=== PATIENT | female | born 1960 | race Caucasian/White ===

== ENCOUNTER 2018-02-07 14:44 | Observation (INO) | payer OTHER ==
[~2018-02-07] VITALS: Ht 165.1 cm; Wt 108.4 kg
[2018-02-07] MEDS ORDERED: ASPIRIN 81 MG CHEW TAB PO ONE (15:00)
[2018-02-07 15:46] LABS: BASOPHILS % 0.6 % (0.0-1.0); EOSINOPHILS # (AUTO) 0.1 (0.0-0.4); EOSINOPHILS % 1.5 % (0.0-6.0); HEMATOCRIT 45.8 % (34.2-44.1); HEMOGLOBIN 15.2 g/dL (12.0-16.0); LYMPHOCYTES % 29.8 % (18.0-39.1); MEAN CORPUSCULAR HEMOGLOBIN 31.9 pg (28-32); MEAN CORPUSCULAR HGB CONC 33.2 g/dL (31-35); MEAN CORPUSCULAR VOLUME 96.2 fL (81-99); MONOCYTES # (AUTO) 0.6 (0.2-0.8); MONOCYTES % 8.4 % (4.4-11.3); NEUTROPHILS # (AUTO) 3.9 (2.1-6.9); NEUTROPHILS % 59.5 % (38.7-80.0); PLATELET COUNT 260 x10e3/uL (140-360); RED BLOOD COUNT 4.76 x10e6/uL (3.6-5.1); RED CELL DISTRIBUTION WIDTH 13.3 % (11.7-14.4)
[2018-02-07 15:56] LABS: INR 1.13; PROTHROMBIN TIME 13.6 seconds (11.9-14.5)
[2018-02-07 15:57] LABS: PARTIAL THROMBOPLASTIN TIME 31.6 seconds (23.8-35.5)
[2018-02-07 16:06] LABS: ALANINE AMINOTRANSFERASE 54 IU/L (0-55); ALBUMIN 3.6 g/dL (3.5-5.0); ALBUMIN/GLOBULIN RATIO 0.9 (0.8-2.0); ALKALINE PHOSPHATASE 78 IU/L (40-150); ANION GAP 14.4 mmol/L (8-16); BLOOD UREA NITROGEN 13 mg/dL (7-26); BUN/CREATININE RATIO 16 (6-25); CALCIUM 9.5 mg/dL (8.4-10.2); CARBON DIOXIDE 23 mmol/L (22-29); CHLORIDE 106 mmol/L (98-107); CREATINE KINASE 141 IU/L (29-168); EST GLOMERULAR FILTRATION RATE > 60 ML/MIN (60-); GLUCOSE 89 mg/dL (74-118); POTASSIUM 4.4 mmol/L (3.5-5.1); SODIUM 139 mmol/L (136-145)
[2018-02-07 16:26] LABS: THYROID STIMULATING HORMONE 1.551 uIU/mL (0.350-4.940)
--- NOTE | 2018-02-07 16:29 | Diagnostic Imaging Report ---
PROCEDURE: A single AP view of the chest. COMPARISON: 01/04/2011 INDICATIONS: CHEST AND BACK PAIN FOR A FEW WEEKS FINDINGS: Lines/tubes: None. Lungs: The lungs are well inflated and clear. There is no evidence of pneumonia or pulmonary edema. Pleura: There is no pleural effusion or pneumothorax. Heart and mediastinum: Normal heart size. Tortuosity of the thoracic aorta appears stable. Bones: No acute bony abnormality. Cervical fusion hardware is visualized. IMPRESSION: 1. No acute cardiopulmonary disease. Dictated by: Hiram Winters M.D. on 02/07/2018 at 16:36 Electronically approved by: Hiram Winters M.D. on 02/07/2018 at 16:36
[2018-02-07] MEDS ORDERED: CLONIDINE HCL 0.1 MG TAB PO ONE (17:00)
[2018-02-07 17:09] LABS: BILIRUBIN,URINE NEGATIVE (NEGATIVE); CLARITY,URINE CLEAR (CLEAR); COLOR,URINE YELLOW (YELLOW); KETONES,URINE NEGATIVE (NEGATIVE); LEUKOCYTE ESTERASE ,URINE NEGATIVE (NEGATIVE); NITRITE,URINE NEGATIVE (NEGATIVE); PROTEIN,URINE DIPSTICK NEGATIVE (NEGATIVE); URINE UROBILINOGEN 0.2 mg/dL (0.2 - 1)
[2018-02-07 17:12] LABS: EPITHELIAL CELLS,URINE MODERATE /LPF
[2018-02-07] MEDS ORDERED: NITROGLYCERIN 0.4 MG SUBL SL PRN (17:45)
[2018-02-07 18:49] VITALS: BP 198/81
[2018-02-07 19:30] VITALS: BP 188/92
[2018-02-07 20:00] VITALS: BP 188/92
[2018-02-07] MEDS ORDERED: HYDRALAZINE HCL 20 MG/ML VIAL IV PRN (21:30)
[2018-02-07] MEDS: FAMOTIDINE 20 MG/2 ML VIAL IV SCH (21:36)
[2018-02-07] MEDS ORDERED: LOSARTAN POTASSIUM 100 MG TAB PO ONE (21:45)
[2018-02-07] MEDS ORDERED: METOPROLOL TARTRATE 50 MG TAB PO ONE (21:45)
[2018-02-08] VITALS (7 sets, daily range): BP systolic 128–162; BP diastolic 70–81
[2018-02-08 00:48] LABS: CREATINE KINASE 138 IU/L (29-168)
[2018-02-08] MEDS ORDERED: LOSARTAN POTASS25 MG (03:49)
[2018-02-08] MEDS ORDERED: METFORMIN HCL500 MG PO (03:49)
[2018-02-08] MEDS ORDERED: LASIX20 MG PO (03:50)
[2018-02-08] MEDS ORDERED: METOPROLOL TART25 MG PO (03:50)
[2018-02-08] MEDS ORDERED: PEPCID20 MG (03:51)
[2018-02-08 06:26] LABS: CHOL/HDL RATIO 6.2 (3.0-3.6); CHOLESTEROL 249 MD/DL (0-199); CREATINE KINASE 114 IU/L (29-168); HDL CHOLESTEROL 40 MG/DL (40-60); LDL CHOLESTEROL 177 MG/DL (60-130); TRIGLYCERIDES 161 MG/DL (0-149)
[2018-02-08] MEDS: FAMOTIDINE 20 MG/2 ML VIAL IV SCH (06:36)
[2018-02-08] MEDS ORDERED: ATORVASTATIN CA10 MG PO (06:40)
[2018-02-08] MEDS ORDERED: NORCO 10-325 T1 EACH (06:42)
[2018-02-08] MEDS ORDERED: METHOCARBAMOL750 MG PO (06:43)
[2018-02-08] MEDS ORDERED: DEXTROSE 50% SYRINGE 50 ML IV PRN (08:00)
--- NOTE | 2018-02-08 08:47 | History and Physical ---
CHIEF COMPLAINT: Chest pain on and off for the last few weeks. HISTORY OF PRESENT ILLNESS: A 57-year-old female with a past medical history of multiple medical problems was admitted at [facility] last evening with the above complaints. The patient was seen in the office yesterday with the above complaints. As per the patient, since the last few weeks she is having chest pain on exertion radiating to her back, retrosternal, precordial. A couple of days back, the patient also felt chest pain radiating to the left arm with left arm tightness. Hence, the patient came to my office yesterday. In the emergency room, the patient was seen by the emergency room doctor and admitted for cardiac workup. At present, the patient is lying comfortably in bed. No apparent distress. No chest pain. No shortness of breath. No nausea, vomiting or diarrhea. No abdominal pain, loss of consciousness. No headaches. No hematemesis or melena. No hematuria or dysuria. No fever. No cough. No witnessed seizures. PAST MEDICAL HISTORY 1. Diabetes mellitus, type 2. 2. Hypertension. 3. Dyslipidemia. 4. Degenerative joint disease. MEDICATIONS: As per the list in the chart. ALLERGIES: PENICILLIN, DARVON. SURGICAL HISTORY: Right hip replacement, right knee replacement, left knee replacement, gallbladder surgery, and abdominal wall ventral hernia surgery. SOCIAL HISTORY: No smoking. No alcohol. No illicit drug use. Lives with family. REVIEW OF SYSTEMS: As per HPI. FAMILY HISTORY: Noncontributory. PHYSICAL EXAMINATION GENERAL: The patient is alert and oriented times 3. No apparent distress. Lying in bed. VITALS: Temperature is 97, pulse 64 per minute, respirations 16, blood pressure 134/80, and saturating 97%. HEENT: No cyanosis. No icterus. No pallor. Normocephalic and atraumatic. PERRLA. NECK: Soft and supple. No JVD. No lymphadenopathy. CHEST: Air entry bilaterally. No murmurs or rubs. ABDOMEN: Soft and nontender. Bowel sounds are positive. JALOUSIES INSTALLER: Alert and oriented times 3. No focal deficit. EXTREMITIES: No cyanosis. No clubbing. No edema. No calf pain. LABS: On admission to the ER, white count 6.5, hemoglobin 15.2, hematocrit 45.8, and platelets 260,000. Sodium 134, potassium 4.5, chloride 106, bicarb 23, BUN 13, creatinine 0.8, glucose 99. LFTs noted. Cardiac enzymes times 3 negative. TSH 1.55. BNP 13.5. Urine negative. Chest x-ray with no acute abnormality. EKG is normal sinus rhythm. ASSESSMENT 1. Chest pain. 2. History of diabetes mellitus. 3. Hypertension. 4. Dyslipidemia. 5. Rule out ischemic heart disease. PLAN: Admit the patient to med/tele. Serial EKGs, cardiac enzymes. Cardiology consultation with Dr. Max. He has scheduled the patient for cardiac stress test today. Further care and treatment while the patient is in the hospital. Discussed with the patient in detail. Continue home medications. Further care and treatment while the patient is in the hospital. Job#: [id number] JERRELL
[2018-02-08] MEDS: LOSARTAN POTASSIUM 100 MG TAB PO SCH (09:00)
[2018-02-08] MEDS: METOPROLOL TARTRATE 50 MG TAB PO SCH ×2 (09:00→17:00)
--- NOTE | 2018-02-08 09:18 | Consultation ---
DATE OF CONSULTATION: February 07, 2018 CARDIOLOGY CONSULTATION REFERRING PHYSICIAN: Dr. Borrego REASON FOR CONSULTATION: Chest pain. HPI: This is a pleasant, 57-year-old female that presented with chest pain. According to her, for 3 weeks she has been having uncontrolled high blood pressure with systolics in the 200s and diastolics in the 150s. She is taking all her medications, and her blood pressure is still high. She also stated when the blood pressure goes up, she has a dull, aching pain at the center of her chest that radiates to her back and to the left arm on a scale of 8 out of 10. She stated she gets shortness of breath with activity, and she decided to come into the emergency room for evaluation. She denied any palpitations, any dizziness, any diaphoresis or headache. Troponin times 3 negative. EKG showed normal sinus rhythm with no ST abnormalities. PAST MEDICAL HISTORY: Uncontrolled hypertension, obesity, diabetes, hyperlipidemia and GERD. PAST SURGICAL HISTORY: , cholecystectomy, hip surgery, hysterectomy, knee surgery, neck surgery, adenoid surgery and tonsillectomy. FAMILY HISTORY: Positive for diabetes. SOCIAL HISTORY: No smoking. No drinking. She lives at home with family. MEDICATIONS: See med list. ALLERGIES: SEE CHART. REVIEW OF SYSTEMS: Negative, except those mentioned above. PHYSICAL EXAMINATION VITAL SIGNS: Temperature 97, heart rate 64, blood pressure 138/81, respirations 20, oxygen saturation 97% on room air. GENERAL: She is awake, alert and oriented times 3. HEENT: Mucous membranes moist. NECK: Supple. LUNGS: Bilaterally clear to auscultation. CARDIOVASCULAR: S1 and S2 present. ABDOMEN: Soft. NEUROLOGIC: Intact. EXTREMITIES: No edema. LABS: Sodium 139, potassium 4.4, chloride 106, CO2 23. BUN 13, creatinine 0.80. Glucose 89. White blood cells 6.54, hemoglobin 15.2, hematocrit 45.8, platelets 260. PT 13.6, PTT 31.6, INR 1.13. IMPRESSION 1. Chest pain. 2. Uncontrolled high blood pressure. 3. Obesity. 4. Diabetes. 5. Hyperlipidemia. ASSESSMENT AND PLAN 1. Pending echocardiogram to assess the LV and the valve function. 2. Troponin times 3 was negative, but symptoms were positive, so we will go ahead and set her up for a [employer] Myoview. Risks and benefits explained to her, and she agreed. 3. Will go ahead and continue aspirin, statin, nitrates and beta armand. 4. She has been counseled on weight reduction. 5. Further cardiac workup pending clinical course. Thank you for this consultation. Dictated by Allan Pedraza NP. Job#: [id number]
[2018-02-08] MEDS: INSULIN LISPRO 100 UNIT/1 ML 3ML VIAL SQ SCH ×3 (11:30→19:57)
[2018-02-08] MEDS: FAMOTIDINE 20 MG TAB PO SCH (16:00)
[2018-02-08] MEDS ORDERED: CLONIDINE HCL 0.1 MG TAB PO PRN (20:30)
[2018-02-09] VITALS: BP 138/68
[2018-02-09 04:54] VITALS: BP 149/67
[2018-02-09] MEDS: INSULIN LISPRO 100 UNIT/1 ML 3ML VIAL SQ SCH ×2 (07:30→11:30)
[2018-02-09 08:17] VITALS: BP 132/63
[2018-02-09] MEDS ORDERED: REGADENOSON 0.4 MG/5 ML SYR IV ONE (08:31)
[2018-02-09] MEDS: FAMOTIDINE 20 MG TAB PO SCH (10:00)
[2018-02-09] MEDS: METOPROLOL TARTRATE 50 MG TAB PO SCH (10:00)
[2018-02-09] MEDS: LOSARTAN POTASSIUM 100 MG TAB PO SCH (10:00)
[2018-02-09 11:54] VITALS: BP 132/63
--- NOTE | 2018-02-09 14:19 | Cardiology Report ---
DATE OF STUDY: February 08, 2018 LEXISCAN NUCLEAR STRESS TEST INDICATIONS: Chest pain. DESCRIPTION OF PROCEDURE: After informed consent, the patient was brought to the stress lab. She was given 28 mCi of technetium-99 Myoview and myocardial perfusion SPECT images were obtained in the horizontal and long axis, short axis and vertical long axis. Due to the patient's body habitus, the patient had a 2-day protocol. The next day the patient was given 0.4 mg Lexiscan over 10 seconds. Patient was given 32 mCi of technetium-99 Myoview, and myocardial perfusion SPECT images obtained in horizontal and long axis, short axis and vertical long axis. Gating images were also obtained. Patient tolerated the procedure without any complications. REPORT: Baseline EKG shows sinus rhythm at 70 beats per minute. Normal axis. Normal intervals. No acute ST-T changes. PARAMETERS 1. Resting heart rate is 72 beats per minute. 2. Maximal heart rate is 105 beats per minute. 3. Resting blood pressure is 140/89 mmHg. 4. Maximum blood pressure was 160/79 mmHg. REASON FOR TERMINATION: End-point attained. INTERPRETATION 1. Negative chest pain. 2. Negative for arrhythmias. 3. Blood pressure response consistent with Lexiscan. 4. No significant ST-T changes seen during Lexiscan infusion compared to baseline. 5. Analysis SPECT images reveals uniform radioisotope uptake in all segments of the myocardium without any significant perfusion defects. CONCLUSIONS 1. No evidence of significant ischemia or infarction on this study. 2. No wall motion abnormality. 3. Overall ejection fraction is 78%. Job#: [id number] [place]
[2018-02-09] MEDS ORDERED: LOSARTAN-HCTZ1 EAC1 PO (14:42)
[2018-02-09] MEDS ORDERED: METOPROLOL TART50 MG PO (14:43)
== END 2018-02-09 15:20 | disposition home or self-care (01) ==
LOC: ER 14:44 → ERHOLD 18:11 → MED/SURG 18:34
PROVIDERS: ADMIT Internal Medicine; ATTEND Internal Medicine
DX: R07.9 Chest pain, unspecified (principal); I10 Essential (primary) hypertension; E11.9 Type 2 diabetes mellitus without complications; K21.9 Gastro-esophageal reflux disease without esophagitis; E78.5 Hyperlipidemia, unspecified; I20.8 Other forms of angina pectoris; Z96.641 Presence of right artificial hip joint; Z88.0 Allergy status to penicillin; Z88.8 Allergy status to other drugs, medicaments and biological substances; E66.9 Obesity, unspecified; Z68.39 Body mass index [BMI] 39.0-39.9, adult
CPT/HCPCS: 36415 ×2; 71045; 78452; 80053; 80061; 81001; 82550 ×2; 82553 ×2; 82948 ×3; 83735; 83880; 84443; 84484 ×2; 85025; 85610; 85730; 93005; 93017; 93306; 99284; A9502; G0378 ×3

== ENCOUNTER → 2018-04-18 | Outpatient (CLI) | payer OTHER ==
[~2018-04-18] MED LIST: ATORVASTATIN CA10 MG PO; LASIX20 MG PO; LOSARTAN POTASS25 MG; LOSARTAN-HCTZ1 EAC1 PO; METFORMIN HCL500 MG PO; METHOCARBAMOL750 MG PO; METOPROLOL TART25 MG PO; METOPROLOL TART50 MG PO; NORCO 10-325 T1 EACH; PEPCID20 MG
--- NOTE | 2018-04-30 08:36 | Diagnostic Imaging Report ---
#[id number] - [id number] #BILATERAL DIGITAL SCREENING MAMMOGRAM WITH CAD: 04/18/2018 CLINICAL: Routine screening. No prior exams were available for comparison. Current study contains 4 films. The tissue of both breasts is predominantly fatty. Current study was also evaluated with a Computer Aided Detection (CAD) system. There are benign calcifications in both breasts. No significant masses, calcifications, or other findings are seen in either breast. IMPRESSION: BENIGN There is no mammographic evidence of malignancy. A 1 year screening mammogram is recommended. The patient will be notified by letter of the results. Selvin ardon/finesse:04/27/2018 08:43:32 Hide Curer: Justine SMITH(R)(M), [facility] letter sent: Normal Exam Mammogram BI-RADS: 2 Benign
== END ==
LOC: MAMMO 12:30
PROVIDERS: ATTEND Internal Medicine
DX: Z12.31 Encounter for screening mammogram for malignant neoplasm of breast (principal)
CPT/HCPCS: 77067